=== PATIENT | female | born 1950 | race Two or more races ===

== ENCOUNTER → 2017-10-17 | Outpatient (CLI) | payer OTHER ==
[~2017-10-17] MED LIST: PERCOCET 5/3251 TAB PO
== END | disposition home or self-care (01) ==
LOC: PPH VACUNA 17:09
DX: Z23 Encounter for immunization (principal)
CPT/HCPCS: 90674; G0008

== ENCOUNTER 2019-08-19 06:10 | Emergency (ER) | payer OTHER ==
[~2019-08-19] VITALS: Ht 157.5 cm; Wt 77.1 kg
[2019-08-19] MEDS ORDERED: ROCALTROL0.25 MCG (06:46)
[2019-08-19] MEDS ORDERED: SYNTHROID75 MCG (06:46)
[2019-08-19] MEDS ORDERED: BISOPROLOL FUMAR5 MG (06:47)
== END 2019-08-19 11:07 | disposition home or self-care (01) ==
LOC: ER 06:10
DX: R19.5 Other fecal abnormalities (principal)

== ENCOUNTER 2021-02-23 17:16 | Emergency (ER) | payer OTHER ==
[~2021-02-23] VITALS: Ht 157.5 cm; Wt 78.0 kg
[~2021-02-23 17:16] MED LIST changes: +BISOPROLOL FUMAR5 MG; +ROCALTROL0.25 MCG; +SYNTHROID75 MCG
[2021-02-23] MEDS ORDERED: VITAMIN D350 MC3 (17:37)
[2021-02-23] MEDS ORDERED: ANTIVERT (17:38)
[2021-02-23] MEDS ORDERED: MACROBID 100 M100 MG PO (20:36)
== END 2021-02-23 21:01 | disposition home or self-care (01) ==
LOC: ER 17:16
DX: R42 Dizziness and giddiness (principal); N39.0 Urinary tract infection, site not specified

== ENCOUNTER 2021-11-10 13:37 | Outpatient (CLI) | payer OTHER ==
[~2021-11-10 13:37] MED LIST changes: +ANTIVERT; +MACROBID 100 M100 MG PO; +VITAMIN D350 MC3
== END 2021-11-10 13:46 | disposition home or self-care (01) ==
LOC: TOM 13:37
PROVIDERS: ATTEND Colon & Rectal Surgery
DX: R10.32 Left lower quadrant pain (principal); K56.3 Gallstone ileus; K57.32 Diverticulitis of large intestine without perforation or abscess without bleeding

== ENCOUNTER 2023-06-10 11:32 | Emergency (ER) | payer OTHER ==
[~2023-06-10] VITALS: Ht 157.5 cm; Wt 79.4 kg
[2023-06-10 13:09] LABS: HEMATOCRIT 41.5 % (36.0-45.00); HEMOGLOBIN 13.2 g/dL (12.0-15.00); MEAN CELL VOLUME 86.3 fL (80.00-100.00); MEAN CORPUSCULAR HEMOGLOBIN 27.5 pg (27.00-32.0); MEAN CORPUSCULAR HGB CONC 31.9 g/dl (32.0-36.0); PLATELET COUNT 271 K/uL (150-450); RED BLOOD COUNT 4.81 M/uL (4.00-6.00); RED CELL DISTRIBUTION WIDTH 13.8 % (11.5-14.5)
[2023-06-10 13:23] LABS: PH,URINE 6.5 (5.0-8.0); URINE APPEARANCE Clear; URINE BILIRRUBIN Negative (NEGATIVE); URINE BLOOD Moderate; URINE COLOR Yellow; URINE GLUCOSE Negative (NEGATIVE); URINE LEUKOCYTE Negative; URINE NITRATE Negative; URINE PROTEIN Negative (NEGATIVE)
[2023-06-10 13:26] LABS: URINE BACTERIA 11.3 uL (0.0-1933); URINE EPITHELIAL CELLS 10.9 uL (0.0-38.8); URINE RBC 138.2 uL (0.0-20.8); URINE WBC 8.4 uL (0.0-23.2)
== END 2023-06-10 14:39 | disposition home or self-care (01) ==
LOC: ER 11:32
PROVIDERS: Emergency Medicine
DX: N20.0 Calculus of kidney (principal); K80.20 Calculus of gallbladder without cholecystitis without obstruction; K57.30 Diverticulosis of large intestine without perforation or abscess without bleeding; K76.0 Fatty (change of) liver, not elsewhere classified; Z88.8 Allergy status to other drugs, medicaments and biological substances; Z85.89 Personal history of malignant neoplasm of other organs and systems

== ENCOUNTER 2023-06-13 15:33 | Emergency (ER) | payer OTHER ==
[~2023-06-13] VITALS: Ht 157.5 cm; Wt 79.4 kg
[2023-06-13 17:48] LABS: HEMATOCRIT 39.5 % (36.0-45.00); HEMOGLOBIN 13.2 g/dL (12.0-15.00); MEAN CELL VOLUME 83.9 fL (80.00-100.00); MEAN CORPUSCULAR HGB CONC 33.3 g/dl (32.0-36.0); PLATELET COUNT 282 K/uL (150-450); RED CELL DISTRIBUTION WIDTH 13.8 % (11.5-14.5)
[2023-06-13 18:09] LABS: ALBUMIN 3.5 gm/dL (3.4-5.0); BILIRUBIN TOTAL 0.97 mg/dL (0.3-1.2); BILIRUBIN,CONJUGATED 0.23 mg/dL (0.0-0.2); BILIRUBIN,UNCONJUGATED 0.74 mg/dL (0.0-0.6); CALCIUM 9.5 mg/dL (8.5-10.1); CREATININE SERUM 1.12 mg/dL (0.55-1.02); GFR 47.82; POTASSIUM 3.92 mEq/L (3.5-5.1); TOTAL PROTEIN 7.5 gm/dL (6.4-8.2)
[2023-06-13 18:11] LABS: PH,URINE 5.5 (5.0-8.0); URINE APPEARANCE Clear; URINE BILIRRUBIN Negative (NEGATIVE); URINE BLOOD Trace; URINE COLOR Yellow; URINE GLUCOSE Negative (NEGATIVE); URINE LEUKOCYTE Trace; URINE NITRATE Negative; URINE PROTEIN Negative (NEGATIVE); URINE UROBILINOGEN 0.2 E.U./dl
[2023-06-13 18:15] LABS: URINE BACTERIA 71.7 uL (0.0-1933); URINE EPITHELIAL CELLS 8.4 uL (0.0-38.8); URINE RBC 5.3 uL (0.0-20.8); URINE WBC 7.4 uL (0.0-23.2)
[2023-06-13] MEDS ORDERED: LEVSIN/SL0.125 MG SL (20:07)
== END 2023-06-13 20:20 | disposition home or self-care (01) ==
LOC: ER 15:34
PROVIDERS: General Practice
DX: R10.31 Right lower quadrant pain (principal)

== ENCOUNTER 2023-12-07 17:13 | Emergency (ER) | payer OTHER ==
[~2023-12-07] VITALS: Ht 157.5 cm; Wt 83.9 kg
[~2023-12-07 17:13] MED LIST changes: +LEVSIN/SL0.125 MG SL
[2023-12-07] MEDS ORDERED: ORPHENADRINE CITRATE 30 MG/ML AMPUL IM STA (18:48)
[2023-12-07] MEDS ORDERED: DEXAMETHASONE SODIUM PHOSPHATE 4 MG/ML VIAL IM STA (18:48)
[2023-12-07] MEDS ORDERED: ACETAMINOPHEN 500 MG GEL..CAP PO STA (18:49)
== END 2023-12-07 21:42 | disposition home or self-care (01) ==
LOC: ER 17:13
DX: S90.01XA Contusion of right ankle, initial encounter (principal); S30.0XXA Contusion of lower back and pelvis, initial encounter; S90.31XA Contusion of right foot, initial encounter; S90.32XA Contusion of left foot, initial encounter; S80.01XA Contusion of right knee, initial encounter; W10.8XXA Fall (on) (from) other stairs and steps, initial encounter; Y93.89 Activity, other specified; Y92.098 Other place in other non-institutional residence as the place of occurrence of the external cause; Y99.9 Unspecified external cause status; Z88.8 Allergy status to other drugs, medicaments and biological substances; M51.37 Other intervertebral disc degeneration, lumbosacral region
CPT/HCPCS: 70260; 72040; 73560; 73610; 73630; 73660; 96372; 99284; J1100; J2360